=== PATIENT | female | born 1990 | race Caucasian/White ===

== ENCOUNTER 2017-03-25 06:13 | Emergency (ER) | payer OTHER ==
--- NOTE | 2017-03-25 06:39 | ED.PDOC ---
History of Present Illness - General Source: patient Exam Limitations: no limitations - History of Present Illness Initial Comments: the patient is a 26-year-old femalepresenting to the emergency room secondary to waking up with a very heavy menstrual cycle. She reports that she had very light cycles for the last couple of months. Additionally she has gone off of her control pill the last month or 2. She is uncertain if she is . The patient is significantly overweight but has never been diagnosed with polycystic ovaries. No history of diabetes. No history of thyroid disorder. she is having some cramping. She was not trying to get . She has never been . no pelvic trauma. No recent intercourse. No history of any bleeding disorder. No family history of any significant bleeding disorder. No easy bruising. No previously heavy menstrual cycles. the patient has most definitely having significant anxiety. No history of anemia or symptoms of anemia currently. Timing/Duration: 1-3 hours Severity: moderate Improving Factors: nothing Worsening Factors: nothing Associated Symptoms: denies symptoms <Neil Samano - Last Filed: 03/25/17 07:02> <Brandt Rivera - Last Filed: 03/25/17 10:52> - General Chief Complaint: Problem Stated Complaint: vaginal bleeding, clots, cramping Time Seen by Provider: 03/25/17 06:19 - History of Present Illness Allergies/Adverse Reactions: Allergies NO KNOWN ALLERGY Allergy (Verified 03/25/17 06:29) Review of Systems - Review of Systems Constitutional: States: no symptoms reported EENTM: States: no symptoms reported Respiratory: States: no symptoms reported Cardiology: States: no symptoms reported Gastrointestinal/Abdominal: States: abdominal pain Genitourinary: States: see HPI Musculoskeletal: States: no symptoms reported Skin: States: no symptoms reported Neurological: States: no symptoms reported Endocrine: States: no symptoms reported All other Systems: No Change from Baseline <Neil Samano - Last Filed: 03/25/17 07:02> Family Medical History - Family History Mother Living Status: Still Living Hx Family Cancer: Yes Hx Family;Other: thyroid, Epilepsy, <Neil Samano - Last Filed: 03/25/17 07:02> Physical Exam - Physical Exam General Appearance: Alert, Anxious, No apparent distress Eye Exam: bilateral normal Ears, Nose, Throat: hearing grossly normal, normal ENT inspection Neck: full range of motion, supple, normal inspection Respiratory: lungs clear, normal breath sounds, no respiratory distress, no accessory muscle use Cardiovascular/Chest: normal peripheral pulses, regular rate, rhythm, no edema Peripheral Pulses: radial,right: 2+, radial,left: 2+ Gastrointestinal/Abdominal: non tender, soft, other - obese Rectal Exam: deferred Back Exam: normal inspection, no CVA tenderness Extremity: normal range of motion, non-tender, normal inspection, no pedal edema , normal capillary refill Neurologic: vocational counselor II-XII nml as tested, alert, normal mood/affect, oriented x 3 Skin Exam: normal color Comments: Vital Signs - 24 hr 03/25/17 06:20 Temperature 98.2 F Pulse Rate [ 91 H left] Respiratory 18 Rate Blood Pressure 137/84 [left] O2 Sat by Pulse 93 L Oximetry <Neil Samano L - Last Filed: 03/25/17 07:02> Progress - Progress Progress: 03/25/17 07:03 the patient is a 26-year-old female presenting to the emergency room secondary to passing clots vaginallystarting just an hour or 2 before arrival. No symptoms of anemia. She is significantly anxious. She has been off her control for a couple of months. Urine hCG is positive here. Blood work is pending at this time. Low resolution ultrasound performed by me at bedside shows no evidence of gestational sac or definitive fetus. There is significant amount of debris still left in the uterus. Abdominal pain is minimal. Dr Rivera will be assuming care of the patient. Formal ultrasound should be available in around an hour. Pelvic exam has not yet been done. - Results/Orders Results/Orders: Laboratory Tests 03/25/17 03/25/17 06:29 06:29 Urine Color Red H Urine Appearance Turbid Urine pH 6.0 Ur Specific [place] >= 1.030 Urine Protein >=300 H Urine Glucose (UA) Negative Urine Ketones Negative Urine Blood Large H Urine Nitrite Negative Urine Bilirubin Negative Urine Urobilinogen 0.2 Ur Leukocyte Esterase Negative Urine RBC Tntc H Urine WBC Obscured by rbc's H Ur Epithelial Cells Obscured by rbc's Urine Bacteria Obscured by rbc's H Urine HCG, Qual Positive <Neil Samano - Last Filed: 03/25/17 07:02> - Results/Orders Results/Orders: THE OB ULTRASOUND IS REORTED: THERE IS A GESTATIONAL SAC IN THE CERVICAL CANAL. I HAVE DISCUSSED THE CASE WITH DR. SALINAS'S OFFICE (SHE WAS IN L & D) THE PATIENT HAS A F/U APPT. ON TUESDAY AT 1140 HRS. <Brandt Rivera - Last Filed: 03/25/17 10:52> Departure <Neil Samano - Last Filed: 03/25/17 07:02> - Departure Time of Disposition: 10:50 <Brandt Rivera - Last Filed: 03/25/17 10:52> - Departure Clinical Impression: Threatened miscarriage Disposition: Discharge to Home or Self Care Condition: Fair Departure Forms: ED Discharge - Pt. Copy, Patient Portal Self Enrollment Referrals: TYSHAWN CARDOZA [Primary Care Provider] - 1-2 Weeks
[2017-03-25 06:49] VITALS: TEMP 98.2
[2017-03-25] MEDS ORDERED: ONDANSETRON ODT 8 MG TAB ONE (07:55)
[2017-03-25] MEDS ORDERED: ONDANSETRON ODT 8 MG TAB SL ONE (08:00)
[2017-03-25] MEDS ORDERED: MORPHINE SULFATE INJ 10 MG/ML VIAL ONE (08:20)
[2017-03-25] MEDS ORDERED: MORPHINE SULFATE INJ 10 MG/ML VIAL IV ONE (08:21)
--- NOTE | 2017-03-25 10:07 | US ---
EXAM DESCRIPTION: OB ,Early (0-14wks) CLINICAL HISTORY: VAGINAL BLEEDING, FIRST TRIMESTER COMPARISON: None. TECHNIQUE: Real-time sonographic images of the pelvis are obtained transabdominally and transvaginally. FINDINGS: The uterus measures 11.4 x 4.9 x 4.6 cm. The uterus is normal positioning. The endometrium is mostly hyperechoic measuring 18mm in thickness. There is an anechoic fluid collection in the cervical portion of the endometrial canal measuring mean sac diameter 2.6 cm which would be consistent with estimated gestational age of 7 weeks 5 days. No definite yolk sac or embryo is identified. The right ovary measures 2.9 x 2.1 x 2.3cm. The left ovary measures 3.1 x 2.6 x 1.9 cm. Both ovaries show normal vascular flow. No abnormal adnexal mass or fluid collection is seen. IMPRESSION: There is an anechoic fluid collection in the cervical portion of the endometrial canal that has the appearance of a gestational sac without embryo or fetus. This could represent spontaneous in progress. Estimated gestational age by ultrasound 7 weeks 5 days. Given the size of the gestational sac, pole should be visualized. Quantitative serum beta-hCG is 5500. Continued follow-up in 2-3 days if the patient has not passed significant tissue. No ultrasound evidence of abnormal adnexal mass. Electronically signed by: Arash Keith MD 03/25/2017 10:06 AM [facility]
[2017-03-25 11:17] VITALS: BP 125/86; O2SAT 97
== END 2017-03-25 11:17 | disposition home or self-care (01) ==
LOC: ER 06:13
DX: O20.0 Threatened abortion (principal); Z3A.00 Weeks of gestation of pregnancy not specified
CPT/HCPCS: 36415; 76813; 80053; 81001; 81025; 84443; 84702; 85025; 85610; 85730; 86850; 86900; 86901; 87086; J2270